=== PATIENT | male | born 1935 | race Caucasian/White ===

== ENCOUNTER 2021-11-25 19:17 | Inpatient (IN) | payer MEDICARE ==
[2021-11-25] MEDS ORDERED: Senokot S 8.6-50 MG TAB PO PRN (21:26)
[2021-11-25] MEDS ORDERED: Acetaminophen 325 MG TAB PO PRN (21:26)
[2021-11-25] MEDS: Lactated Ringer's 1,000 ML IV SCH (22:33)
[2021-11-25] MEDS ORDERED: Bictegrav/Emtricit/Tenofov Ala [Biktarvy 50-200-25 Mg Tablet] PO SCH (23:15)
[2021-11-25] MEDS ORDERED: hydrALAZINE 25 MG TAB PO SCH (23:15)
[2021-11-25 23:22] LABS: Hemoglobin 10.8 g/dL (14.0-18.0)
[2021-11-26 00:06] LABS: Thyroid Stimulating Hormone 1.6613 uIU/mL (0.35-4.94)
[2021-11-26] MEDS ORDERED: Pantoprazole 40 MG VIAL IVP SCH ×2 (00:14→09:00)
[2021-11-26 00:19] VITALS: BMI 23.5
[2021-11-26 06:45] LABS: Creatinine, Urine 55.98 mg/dL (63-166)
[2021-11-26 06:50] LABS: Hemoglobin 9.7 g/dL (14.0-18.0); Mean Corpuscular HGB CONC 32.8 g/dL (32.0-36.0); Mean Corpuscular Hemoglobin 36.7 pg (27.0-31.0); Mean Platelet Volume 10.8 fL (7.4-10.4); Platelet Count 105 thou/uL (130-400); RBC Distribution Width 13.3 % (11.5-14.5); Red Blood Cell (RBC) Count 2.64 mill/uL (4.70-6.10); White Blood Cell (WBC) Count 20.7 thou/uL (4.8-10.8)
[2021-11-26 06:51] LABS: ALT (SGPT) 32 U/L (8-55); AST (SGOT) 35 U/L (5-34); Albumin 2.9 g/dL (3.4-4.8); Alkaline Phosphatase 61 U/L (40-110); Anion Gap 16 mmol/L (10-20); BUN (Urea Nitrogen) 49 mg/dL (8.4-25.7); Bilirubin, Total 0.4 mg/dL (0.2-1.2); Calc. Creatinine Clearance 16 mL/min (70-130); Calcium 8.4 mg/dL (7.8-10.44); Carbon Dioxide 17 mmol/L (23-31); Chloride 115 mmol/L (98-107); Estimated GFR 14; Globulin 3.1 g/dL (2.4-3.5); Glucose 107 mg/dL (83-110); Sodium 144 mmol/L (136-145)
[2021-11-26 07:52] LABS: INR-International Normal Ratio 2.7; PTT 70.5 sec (22.9-36.1); Prothrombin Time 29.3 sec (12.0-14.7)
[2021-11-26 08:08] LABS: Band 21 % (5-11); Eosinophils 1 % (0-10); Lymphocytes 5 % (21-51); MDiff Complete? YES; Macrocytosis SLIGHT = 6-15 cells (100X) (0-5/hpf); Monocytes 1 % (0-10); Neutrophil 72 % (42-75); Platelet Morphology Comment Appears Decreased; Polychromasia SLIGHT = 2-3 cells (100X) (0-2/hpf)
[2021-11-26 08:49] LABS: Hemoglobin 9.4 g/dL (14.0-18.0)
[2021-11-26] MEDS ORDERED: Bictegrav/Emtricit/Tenofov Ala [Biktarvy 50-200-25 Mg Tablet] PO SCH (09:00)
[2021-11-26] MEDS ORDERED: Piperacillin/Tazobactam 3.375 GM in Sodium Chloride 0.9% 100 ML IVPB SCH (09:00)
[2021-11-26 09:58] LABS: Vancomycin, Random 16.1 ug/mL (See Comment)
[2021-11-26] MEDS ORDERED: Vancomycin 1 GM in Premix Bag 1 BAG IVPB SCH (10:00)
[2021-11-26] MEDS: Calcium Carbonate 600 MG + Vit D TAB PO SCH (10:22)
[2021-11-26] MEDS: Cyanocobalamin (Vitamin B-12) 1,000 MCG TAB PO SCH (10:23)
[2021-11-26] MEDS: hydrALAZINE 25 MG TAB PO SCH ×3 (10:25→22:45)
[2021-11-26] MEDS: Pantoprazole 40 MG VIAL IVP SCH ×2 (10:27→22:26)
[2021-11-26] MEDS: Vancomycin 1 GM in Premix Bag 1 BAG IVPB SCH (10:28)
[2021-11-26] MEDS: Lactated Ringer's 1,000 ML IV SCH (10:32)
[2021-11-26] MEDS: cefTRIAXone\\ROCEPHIN 1 GM in Sodium Chloride 0.9% 100 ML IVPB SCH (10:40)
[2021-11-26 15:07] LABS: Anion Gap 17 mmol/L (10-20); BUN (Urea Nitrogen) 49 mg/dL (8.4-25.7); Calc. Creatinine Clearance 17 mL/min (70-130); Calcium 8.2 mg/dL (7.8-10.44); Carbon Dioxide 15 mmol/L (23-31); Chloride 112 mmol/L (98-107); Estimated GFR 15; Glucose 114 mg/dL (83-110); Potassium 3.7 mmol/L (3.5-5.1); Sodium 140 mmol/L (136-145); Troponin I 0.097 ng/mL (< 0.028)
[2021-11-26 15:08] LABS: Magnesium 1.5 mg/dL (1.6-2.6)
[2021-11-26] MEDS: metroNIDAZOLE 500 MG in Premix Bag 1 BAG IVPB SCH ×2 (15:18→22:46)
[2021-11-26] MEDS ORDERED: Magnesium 2 GM/50 ML(in water) 2 GM in Premix Bag 1 BAG IVPB SCH (16:15)
[2021-11-26 18:32] LABS: Hemoglobin 8.5 g/dL (14.0-18.0)
[2021-11-26] MEDS: Sodium Bicarbonate Tab 325 MG TAB PO SCH (22:26)
[2021-11-27] MEDS: Lactated Ringer's 1,000 ML IV SCH ×2 (00:07→00:10)
[2021-11-27 00:33] LABS: Hemoglobin 8.1 g/dL (14.0-18.0)
[2021-11-27 04:49] LABS: Phosphorus 3.9 mg/dL (2.3-4.7)
[2021-11-27] MEDS: metroNIDAZOLE 500 MG in Premix Bag 1 BAG IVPB SCH ×3 (06:10→21:03)
[2021-11-27 06:44] LABS: Hemoglobin 7.5 g/dL (14.0-18.0)
[2021-11-27 07:17] LABS: ALT (SGPT) 23 U/L (8-55); AST (SGOT) 27 U/L (5-34); Albumin 2.5 g/dL (3.4-4.8); Alkaline Phosphatase 43 U/L (40-110); Anion Gap 12 mmol/L (10-20); BUN (Urea Nitrogen) 49 mg/dL (8.4-25.7); Bilirubin, Total 0.4 mg/dL (0.2-1.2); Calc. Creatinine Clearance 17 mL/min (70-130); Calcium 7.9 mg/dL (7.8-10.44); Carbon Dioxide 20 mmol/L (23-31); Chloride 114 mmol/L (98-107); Estimated GFR 15; Globulin 2.5 g/dL (2.4-3.5); Glucose 103 mg/dL (83-110); Potassium 3.7 mmol/L (3.5-5.1); Sodium 142 mmol/L (136-145)
[2021-11-27 07:18] LABS: Magnesium 1.8 mg/dL (1.6-2.6)
[2021-11-27 07:51] LABS: INR-International Normal Ratio 2.3; Prothrombin Time 25.8 sec (12.0-14.7)
[2021-11-27 07:52] LABS: PTT 62.3 sec (22.9-36.1)
[2021-11-27] MEDS: Calcium Carbonate 600 MG + Vit D TAB PO SCH (09:36)
[2021-11-27] MEDS: Sodium Bicarbonate Tab 325 MG TAB PO SCH ×6 (09:37→20:17)
[2021-11-27] MEDS: hydrALAZINE 25 MG TAB PO SCH ×3 (09:37→20:18)
[2021-11-27] MEDS: Cyanocobalamin (Vitamin B-12) 1,000 MCG TAB PO SCH (09:37)
[2021-11-27] MEDS: Pantoprazole 40 MG VIAL IVP SCH ×2 (09:38→20:17)
[2021-11-27] MEDS: cefTRIAXone\\ROCEPHIN 1 GM in Sodium Chloride 0.9% 100 ML IVPB SCH (09:42)
[2021-11-27] MEDS: Vancomycin 1 GM in Premix Bag 1 BAG IVPB SCH (09:43)
[2021-11-27] MEDS ORDERED: Phytonadione 10 MG/ML AMP PO SCH (10:00)
[2021-11-27] MEDS ORDERED: Amiodarone 200 MG TAB PO SCH (10:15)
[2021-11-27 10:25] LABS: Vancomycin, Trough 20.5 ug/mL
[2021-11-27] MEDS ORDERED: Vancomycin 1 GM, Admixture Fee 1 EACH in Premix Bag 1 BAG IVPB SCH (11:00)
[2021-11-27] MEDS ORDERED: Magnesium 2 GM/50 ML(in water) 2 GM in Premix Bag 1 BAG IVPB SCH (11:15)
[2021-11-27 14:36] LABS: %CD4 (Helper/Inducer) 13.1 % (30.8-58.5); Absolute CD4 157 /uL (359-1519); Lymphocytes/Gated Cell Count 1.2 x10E3/uL (0.7-3.1); Total Lymphocyte 6 % (Not Estab.); WBC Total Count 21.5 x10E3/uL (3.4-10.8)
[2021-11-27] MEDS: Amiodarone 200 MG TAB PO SCH ×2 (15:59→20:16)
[2021-11-27 17:43] LABS: INR-International Normal Ratio 1.5; Prothrombin Time 18.1 sec (12.0-14.7)
[2021-11-27 17:44] LABS: PTT 46.4 sec (22.9-36.1)
[2021-11-27 20:11] LABS: Hemoglobin 9.3 g/dL (14.0-18.0); Platelet Count 85 thou/uL (130-400)
[2021-11-28 01:31] LABS: Hemoglobin 9.6 g/dL (14.0-18.0)
[2021-11-28 04:14] LABS: #Eosinphils 0.4 thou/uL (0.0-0.7); #Neutrophils 7.5 thou/uL (1.40-6.50); %Basophils 0.4 % (0.0-1.0); %Eosinophils 3.8 % (0.0-10.0); %Lymphocytes 17.9 % (21.0-51.0); %Monocytes 8.8 % (0.0-10.0); %Neutrophils 69.1 % (42.0-75.0); Hemoglobin 8.9 g/dL (14.0-18.0); Mean Corpuscular HGB CONC 33.4 g/dL (32.0-36.0); Mean Corpuscular Hemoglobin 35.6 pg (27.0-31.0); Mean Platelet Volume 10.9 fL (7.4-10.4); Platelet Count 88 thou/uL (130-400); RBC Distribution Width 17.2 % (11.5-14.5); Red Blood Cell (RBC) Count 2.51 mill/uL (4.70-6.10); White Blood Cell (WBC) Count 10.8 thou/uL (4.8-10.8)
[2021-11-28 04:23] LABS: INR-International Normal Ratio 1.2; Prothrombin Time 15.5 sec (12.0-14.7)
[2021-11-28 04:24] LABS: PTT 42.7 sec (22.9-36.1)
[2021-11-28] MEDS: metroNIDAZOLE 500 MG in Premix Bag 1 BAG IVPB SCH ×3 (05:44→22:51)
[2021-11-28 07:45] LABS: Anion Gap 16 mmol/L (10-20); BUN (Urea Nitrogen) 47 mg/dL (8.4-25.7); Calc. Creatinine Clearance 18 mL/min (70-130); Calcium 7.9 mg/dL (7.8-10.44); Carbon Dioxide 16 mmol/L (23-31); Chloride 111 mmol/L (98-107); Estimated GFR 16; Glucose 95 mg/dL (83-110); Potassium 3.5 mmol/L (3.5-5.1); Sodium 139 mmol/L (136-145)
[2021-11-28] MEDS ORDERED: Carvedilol 3.125 MG TAB PO SCH ×2 (09:10→09:15)
[2021-11-28] MEDS: hydrALAZINE 25 MG TAB PO SCH ×3 (09:44→22:07)
[2021-11-28] MEDS: Calcitriol 0.25 MCG CAP PO SCH (09:44)
[2021-11-28] MEDS: Amiodarone 200 MG TAB PO SCH ×3 (09:45→22:07)
[2021-11-28] MEDS: Cyanocobalamin (Vitamin B-12) 1,000 MCG TAB PO SCH (09:45)
[2021-11-28] MEDS: Calcium Carbonate 600 MG + Vit D TAB PO SCH (09:45)
[2021-11-28] MEDS: Sodium Bicarbonate Tab 325 MG TAB PO SCH ×3 (09:45→22:07)
[2021-11-28] MEDS: Pantoprazole 40 MG VIAL IVP SCH ×2 (09:46→22:08)
[2021-11-28] MEDS: cefTRIAXone\\ROCEPHIN 1 GM in Sodium Chloride 0.9% 100 ML IVPB SCH (10:02)
[2021-11-28 10:32] LABS: Vancomycin, Random 15.9 ug/mL (See Comment)
[2021-11-28] MEDS ORDERED: Vancomycin HCl 500 MG in Sodium Chloride 0.9% 100 ML IVPB SCH (12:00)
[2021-11-28] MEDS ORDERED: GoLYTELY 4,000 ml Bottle PO SCH (14:30)
[2021-11-28] MEDS: Carvedilol 3.125 MG TAB PO SCH (17:22)
[2021-11-28] MEDS: Raltegravir Potassium 400 MG TAB PO SCH (22:07)
[2021-11-29] MEDS ORDERED: Labetalol HCl 100 MG/20 ML VIAL SLOW IVP SCH (04:00)
[2021-11-29 05:00] LABS: Anion Gap 17 mmol/L (10-20); BUN (Urea Nitrogen) 45 mg/dL (8.4-25.7); Calc. Creatinine Clearance 18 mL/min (70-130); Calcium 7.9 mg/dL (7.8-10.44); Carbon Dioxide 17 mmol/L (23-31); Chloride 108 mmol/L (98-107); Estimated GFR 17; Glucose 102 mg/dL (83-110); Potassium 3.4 mmol/L (3.5-5.1); Sodium 139 mmol/L (136-145)
[2021-11-29 05:01] LABS: INR-International Normal Ratio 1.1; Prothrombin Time 14.7 sec (12.0-14.7)
[2021-11-29 05:02] LABS: PTT 38.2 sec (22.9-36.1)
[2021-11-29] MEDS: metroNIDAZOLE 500 MG in Premix Bag 1 BAG IVPB SCH ×3 (05:33→21:19)
[2021-11-29 06:27] LABS: Anisocytosis SLIGHT = 6-15 cells (100X) (0-5/hpf); Burr Cells SLIGHT = 2-5 cells (100X) (0-1/hpf); Eosinophils 4 % (0-10); Hemoglobin 9.8 g/dL (14.0-18.0); Lymphocytes 20 % (21-51); MDiff Complete? YES; Macrocytosis MODERATE=16-30 cells (100X) (0-5/hpf); Mean Corpuscular HGB CONC 33.1 g/dL (32.0-36.0); Mean Corpuscular Hemoglobin 35.2 pg (27.0-31.0); Mean Platelet Volume 10.6 fL (7.4-10.4); Monocytes 5 % (0-10); Neutrophil 71 % (42-75); Nucleated RBC 1 % (0); Ovalocytes SLIGHT = 2-5 cells (100X) (0-1/hpf); Platelet Count 91 thou/uL (130-400); Platelet Morphology Comment Appears Decreased; RBC Distribution Width 16.6 % (11.5-14.5); Red Blood Cell (RBC) Count 2.78 mill/uL (4.70-6.10); Tear Drops SLIGHT = 2-5 cells (100X) (0-1/hpf); White Blood Cell (WBC) Count 10.8 thou/uL (4.8-10.8)
[2021-11-29] MEDS ORDERED: PROPOFOL 200 MG/20 ML VIAL ONE (08:51)
[2021-11-29] MEDS ORDERED: Promethazine HCl 25 MG/ML VIAL IVPB PRN (09:19)
[2021-11-29] MEDS ORDERED: Promethazine HCl 25 MG/ML VIAL IM PRN (09:19)
[2021-11-29] MEDS ORDERED: Ondansetron HCl/PF 4 MG/2 ML Vial IVP PRN (09:19)
[2021-11-29] MEDS: Sodium Bicarbonate Tab 325 MG TAB PO SCH ×3 (09:48→21:05)
[2021-11-29] MEDS: Calcium Carbonate 600 MG + Vit D TAB PO SCH (09:49)
[2021-11-29] MEDS: Cyanocobalamin (Vitamin B-12) 1,000 MCG TAB PO SCH (09:49)
[2021-11-29] MEDS: Raltegravir Potassium 400 MG TAB PO SCH ×2 (09:49→21:05)
[2021-11-29] MEDS: Calcitriol 0.25 MCG CAP PO SCH (09:49)
[2021-11-29] MEDS: Amiodarone 200 MG TAB PO SCH ×3 (09:50→21:05)
[2021-11-29] MEDS: hydrALAZINE 25 MG TAB PO SCH ×3 (09:50→22:10)
[2021-11-29] MEDS: Carvedilol 3.125 MG TAB PO SCH ×2 (09:50→18:22)
[2021-11-29] MEDS: Pantoprazole 40 MG VIAL IVP SCH ×2 (09:50→21:05)
[2021-11-29] MEDS ORDERED: Potassium Chloride 20 MEQ TAB PO SCH (10:45)
[2021-11-29 11:13] LABS: Vancomycin, Random 16.1 ug/mL (See Comment)
[2021-11-29] MEDS: cefTRIAXone\\ROCEPHIN 1 GM in Sodium Chloride 0.9% 100 ML IVPB SCH (11:50)
[2021-11-29] MEDS ORDERED: Vancomycin HCl 500 MG in Sodium Chloride 0.9% 100 ML IVPB SCH (12:00)
[2021-11-29] MEDS: Vancomycin Sliding Scale IVPB SCH (15:12)
[2021-11-29 19:43] LABS: Campy jejuni + coli by PCR Negative (Negative); STEC Shiga Toxin 1+2 Negative (Negative); Salmonella spp. by PCR Negative (Negative); Shigella spp + EIEC by PCR Negative (Negative)
[2021-11-29 21:07] LABS: LOG10 HIV-1 RNA 1.301 (.)
[2021-11-30 04:47] LABS: INR-International Normal Ratio 1.1; Prothrombin Time 14.7 sec (12.0-14.7)
[2021-11-30 04:48] LABS: PTT 40.8 sec (22.9-36.1)
[2021-11-30 04:50] LABS: Anion Gap 13 mmol/L (10-20); BUN (Urea Nitrogen) 45 mg/dL (8.4-25.7); Calc. Creatinine Clearance 18 mL/min (70-130); Calcium 7.8 mg/dL (7.8-10.44); Carbon Dioxide 21 mmol/L (23-31); Chloride 109 mmol/L (98-107); Estimated GFR 17; Glucose 97 mg/dL (83-110); Potassium 3.6 mmol/L (3.5-5.1); Sodium 139 mmol/L (136-145)
[2021-11-30 05:13] LABS: Hemoglobin 8.7 g/dL (14.0-18.0); Lymphocytes 32 % (21-51); MDiff Complete? YES; Macrocytosis SLIGHT = 6-15 cells (100X) (0-5/hpf); Mean Corpuscular HGB CONC 33.4 g/dL (32.0-36.0); Mean Corpuscular Hemoglobin 35.9 pg (27.0-31.0); Mean Platelet Volume 11.1 fL (7.4-10.4); Monocytes 8 % (0-10); Neutrophil 60 % (42-75); Platelet Count 81 thou/uL (130-400); Platelet Morphology Comment Appears Decreased; RBC Distribution Width 16.7 % (11.5-14.5); Red Blood Cell (RBC) Count 2.42 mill/uL (4.70-6.10); White Blood Cell (WBC) Count 9.4 thou/uL (4.8-10.8)
[2021-11-30] MEDS: metroNIDAZOLE 500 MG in Premix Bag 1 BAG IVPB SCH ×3 (05:17→20:48)
[2021-11-30] MEDS: Carvedilol 3.125 MG TAB PO SCH ×2 (08:47→17:29)
[2021-11-30] MEDS: Sodium Bicarbonate Tab 325 MG TAB PO SCH ×3 (08:47→20:25)
[2021-11-30] MEDS: Amiodarone 200 MG TAB PO SCH ×3 (08:47→20:30)
[2021-11-30] MEDS: Raltegravir Potassium 400 MG TAB PO SCH ×2 (08:47→20:31)
[2021-11-30] MEDS: hydrALAZINE 25 MG TAB PO SCH ×3 (08:47→20:30)
[2021-11-30] MEDS: Calcitriol 0.25 MCG CAP PO SCH (08:48)
[2021-11-30] MEDS: Cyanocobalamin (Vitamin B-12) 1,000 MCG TAB PO SCH (08:48)
[2021-11-30] MEDS: Calcium Carbonate 600 MG + Vit D TAB PO SCH (08:48)
[2021-11-30] MEDS: Pantoprazole 40 MG VIAL IVP SCH ×2 (08:49→20:31)
[2021-11-30 11:13] LABS: Vancomycin, Random 17.7 ug/mL (See Comment)
[2021-11-30] MEDS: cefTRIAXone\\ROCEPHIN 1 GM in Sodium Chloride 0.9% 100 ML IVPB SCH (11:40)
[2021-11-30] MEDS ORDERED: Vancomycin HCl 500 MG in Sodium Chloride 0.9% 100 ML IVPB SCH (12:00)
[2021-11-30] MEDS: Vancomycin Sliding Scale IVPB SCH (12:59)
[2021-11-30 13:34] LABS: Hemoglobin 9.8 g/dL (14.0-18.0)
[2021-11-30] MEDS ORDERED: Carvedilol 3.125 MG TAB PO SCH (14:00)
[2021-11-30] MEDS: Metoprolol Tartrate 25 MG TAB PO SCH (20:30)
[2021-12-01 04:46] LABS: #Basophils 0.1 thou/uL (0.0-0.2); #Eosinphils 0.3 thou/uL (0.0-0.7); #Lymphocytes 2.7 thou/uL (1.20-3.40); #Monocytes 1.6 thou/uL (0.11-0.59); #Neutrophils 6.6 thou/uL (1.40-6.50); %Basophils 0.7 % (0.0-1.0); %Lymphocytes 24.1 % (21.0-51.0); %Monocytes 14.4 % (0.0-10.0); %Neutrophils 57.8 % (42.0-75.0); Hemoglobin 9.4 g/dL (14.0-18.0); Mean Corpuscular HGB CONC 33.1 g/dL (32.0-36.0); Mean Corpuscular Hemoglobin 36.1 pg (27.0-31.0); Mean Platelet Volume 11.2 fL (7.4-10.4); Platelet Count 103 thou/uL (130-400); RBC Distribution Width 16.7 % (11.5-14.5); Red Blood Cell (RBC) Count 2.59 mill/uL (4.70-6.10); White Blood Cell (WBC) Count 11.3 thou/uL (4.8-10.8)
[2021-12-01 04:48] LABS: INR-International Normal Ratio 1.2; PTT 38.2 sec (22.9-36.1); Prothrombin Time 14.9 sec (12.0-14.7)
[2021-12-01 05:01] LABS: Anion Gap 14 mmol/L (10-20); BUN (Urea Nitrogen) 43 mg/dL (8.4-25.7); Calc. Creatinine Clearance 19 mL/min (70-130); Calcium 7.9 mg/dL (7.8-10.44); Carbon Dioxide 20 mmol/L (23-31); Chloride 109 mmol/L (98-107); Estimated GFR 17; Glucose 100 mg/dL (83-110); Potassium 3.7 mmol/L (3.5-5.1); Sodium 139 mmol/L (136-145)
[2021-12-01] MEDS: metroNIDAZOLE 500 MG in Premix Bag 1 BAG IVPB SCH (06:08)
[2021-12-01] MEDS: Sodium Bicarbonate Tab 325 MG TAB PO SCH ×3 (10:05→22:43)
[2021-12-01] MEDS: Raltegravir Potassium 400 MG TAB PO SCH ×2 (10:05→22:44)
[2021-12-01] MEDS: Calcium Carbonate 600 MG + Vit D TAB PO SCH (10:05)
[2021-12-01] MEDS: Calcitriol 0.25 MCG CAP PO SCH (10:05)
[2021-12-01] MEDS: Cyanocobalamin (Vitamin B-12) 1,000 MCG TAB PO SCH (10:05)
[2021-12-01] MEDS: Metoprolol Tartrate 25 MG TAB PO SCH ×2 (10:06→22:43)
[2021-12-01] MEDS: Pantoprazole 40 MG VIAL IVP SCH ×2 (10:06→22:42)
[2021-12-01] MEDS: Amiodarone 200 MG TAB PO SCH ×3 (10:06→22:44)
[2021-12-01] MEDS: hydrALAZINE 25 MG TAB PO SCH ×3 (10:06→22:44)
[2021-12-01] MEDS: cefTRIAXone\\ROCEPHIN 1 GM in Sodium Chloride 0.9% 100 ML IVPB SCH (10:07)
[2021-12-01 11:16] LABS: Vancomycin, Random 15.4 ug/mL (See Comment)
[2021-12-01] MEDS ORDERED: Vancomycin HCl 500 MG in Sodium Chloride 0.9% 100 ML IVPB SCH (11:30)
[2021-12-01 14:38] LABS: CMV DNA-PCR Test Negative (Negative)
[2021-12-01] MEDS ORDERED: traMADol HCl 50 MG TAB PO SCH (23:30)
[2021-12-02 04:46] LABS: INR-International Normal Ratio 1.2; PTT 35.3 sec (22.9-36.1); Prothrombin Time 15.4 sec (12.0-14.7)
[2021-12-02 04:57] LABS: Anion Gap 12 mmol/L (10-20); BUN (Urea Nitrogen) 41 mg/dL (8.4-25.7); Calc. Creatinine Clearance 18 mL/min (70-130); Calcium 8.1 mg/dL (7.8-10.44); Carbon Dioxide 23 mmol/L (23-31); Chloride 107 mmol/L (98-107); Estimated GFR 17; Glucose 100 mg/dL (83-110); Potassium 3.7 mmol/L (3.5-5.1); Sodium 138 mmol/L (136-145)
[2021-12-02 05:00] LABS: Band 3 % (5-11); Hypochromia SLIGHT = 6-15 cells (100X) (0-5/hpf); Lymphocytes 26 % (21-51); MDiff Complete? YES; Macrocytosis SLIGHT = 6-15 cells (100X) (0-5/hpf); Mean Corpuscular HGB CONC 32.8 g/dL (32.0-36.0); Mean Corpuscular Hemoglobin 35.9 pg (27.0-31.0); Mean Platelet Volume 10.7 fL (7.4-10.4); Monocytes 8 % (0-10); Neutrophil 63 % (42-75); Platelet Count 110 thou/uL (130-400); Platelet Morphology Comment Appears Decreased; RBC Distribution Width 16.6 % (11.5-14.5); White Blood Cell (WBC) Count 11.7 thou/uL (4.8-10.8)
[2021-12-02] MEDS: Amiodarone 200 MG TAB PO SCH (09:02)
[2021-12-02] MEDS: Calcium Carbonate 600 MG + Vit D TAB PO SCH (09:02)
[2021-12-02] MEDS: Metoprolol Tartrate 25 MG TAB PO SCH (09:02)
[2021-12-02] MEDS: Cyanocobalamin (Vitamin B-12) 1,000 MCG TAB PO SCH (09:02)
[2021-12-02] MEDS: Raltegravir Potassium 400 MG TAB PO SCH ×2 (09:02→21:21)
[2021-12-02] MEDS: hydrALAZINE 25 MG TAB PO SCH ×3 (09:03→21:21)
[2021-12-02] MEDS: Calcitriol 0.25 MCG CAP PO SCH (09:03)
[2021-12-02] MEDS: Pantoprazole 40 MG VIAL IVP SCH (09:03)
[2021-12-02] MEDS: Sodium Bicarbonate Tab 325 MG TAB PO SCH ×3 (09:03→21:22)
[2021-12-02] MEDS ORDERED: Potassium Chloride 20 MEQ TAB PO SCH (09:30)
[2021-12-02] MEDS ORDERED: Vancomycin HCl 500 MG in Sodium Chloride 0.9% 100 ML IVPB SCH (12:00)
[2021-12-02] MEDS ORDERED: Amiodarone 200 MG TAB PO SCH (21:00)
[2021-12-03 02:08] VITALS: BP 147/64; TEMP 98.1
[2021-12-03] MEDS ORDERED: Lidocaine 5% Patch TD SCH (09:00)
[2021-12-03] MEDS ORDERED: Transdermal Patch Removal TOP SCH (21:00)
[2021-12-04 15:02] LABS: G-6-PD,Quant 374 (127-427); G-6-PD,RBC 2.68 x10E6/uL (4.14-5.80)
[2021-12-05] MEDS ORDERED: Apixaban 2.5 MG TAB PO SCH (09:00)
== END 2021-12-02 22:04 | disposition home health service (06) | DRG 394 ==
LOC: INTOOBSV 19:17 → 2NO 19:17 → OBSVTOIN 11-26 09:17
PROVIDERS: ADMIT Family Medicine; ATTEND Family Medicine
PROC: 30233N1 Transfusion of Nonautologous Red Blood Cells into Peripheral Vein, Percutaneous Approach (ICD-10-PCS; 2021-11-27)
PROC: 0DBN8ZX Excision of Sigmoid Colon, Via Natural or Artificial Opening Endoscopic, Diagnostic (ICD-10-PCS; principal; 2021-11-29)
DX: K55.9 Vascular disorder of intestine, unspecified (principal); N17.9 Acute kidney failure, unspecified; I48.92 Unspecified atrial flutter; N18.4 Chronic kidney disease, stage 4 (severe); Z20.822 Contact with and (suspected) exposure to COVID-19; Z21 Asymptomatic human immunodeficiency virus [HIV] infection status; R33.9 Retention of urine, unspecified; C61 Malignant neoplasm of prostate; H40.9 Unspecified glaucoma; I48.0 Paroxysmal atrial fibrillation; Z96.641 Presence of right artificial hip joint; E86.0 Dehydration; G47.00 Insomnia, unspecified; S00.83XA Contusion of other part of head, initial encounter; W06.XXXA Fall from bed, initial encounter; K59.09 Other constipation; R79.1 Abnormal coagulation profile; D63.1 Anemia in chronic kidney disease; I12.9 Hypertensive chronic kidney disease with stage 1 through stage 4 chronic kidney disease, or unspecified chronic kidney disease; E83.42 Hypomagnesemia; E87.6 Hypokalemia; M25.532 Pain in left wrist; Z86.73 Personal history of transient ischemic attack (TIA), and cerebral infarction without residual deficits; Z79.899 Other long term (current) drug therapy; Z79.82 Long term (current) use of aspirin; Z86.718 Personal history of other venous thrombosis and embolism; Z79.01 Long term (current) use of anticoagulants; Z92.3 Personal history of irradiation; Z85.46 Personal history of malignant neoplasm of prostate; Z95.2 Presence of prosthetic heart valve; Z90.81 Acquired absence of spleen; Y92.003 Bedroom of unspecified non-institutional (private) residence as the place of occurrence of the external cause
CPT/HCPCS: 36415; 36430; 71045; 80048; 80053; 80202; 82570; 82607; 82955; 83735; 83970; 84100; 84145; 84300; 84443; 84484; 85014; 85018; 85025; 85041; 85610; 85730; 86361; 86850; 86900; 86901; 87015; 87206; 87324; 87328; 87329; 87385; 87449; 87497; 87505; 87536; 88305; 93005; 93010; 93306; 96374; C9113; G0378; J0696; J2704; J3370; J3430; J3475; J3490; J7120; P9016